=== PATIENT | female | born 1960 | race Hispanic/Latino ===

== ENCOUNTER → 2019-04-10 | Outpatient (CLI) | payer OTHER | END | disposition home or self-care (01) | LOC: OIH 07:36 | PROVIDERS: ATTEND Internal Medicine | DX: R06.2 Wheezing (principal) | CPT/HCPCS: 71046 ==

== ENCOUNTER → 2019-04-24 | Outpatient (CLI) | payer OTHER | END | disposition home or self-care (01) | LOC: RAH 09:55 | PROVIDERS: ATTEND Internal Medicine | DX: R55 Syncope and collapse (principal); R00.2 Palpitations; I51.7 Cardiomegaly | CPT/HCPCS: 93306 ==